=== PATIENT | male | born 1945 | race Caucasian/White ===

== ENCOUNTER 2017-02-28 00:01 | Observation (INO) | payer MEDICARE, OTHER ==
[~2017-02-28] VITALS: Ht 185.4 cm; Wt 90.7 kg
== END 2017-02-28 14:00 | disposition left against medical advice (07) ==
LOC: ER 00:01 → MED 04:32
PROVIDERS: ADMIT Internal Medicine
DX: R42 Dizziness and giddiness (principal); R11.2 Nausea with vomiting, unspecified; E11.65 Type 2 diabetes mellitus with hyperglycemia; I10 Essential (primary) hypertension; E78.5 Hyperlipidemia, unspecified; F17.210 Nicotine dependence, cigarettes, uncomplicated; Z79.4 Long term (current) use of insulin; Z79.82 Long term (current) use of aspirin; Z79.52 Long term (current) use of systemic steroids; Z79.899 Other long term (current) drug therapy
CPT/HCPCS: 96374; 96375; 96376; G0378